=== PATIENT | male | born 1955 | race American Indian/Alaskan Native ===

== ENCOUNTER 2016-09-02 12:53 | Emergency (ER) | payer OTHER ==
--- NOTE | 2016-09-02 15:39 | Cat Scan Report ---
FINAL REPORT PROCEDURE: CT HEAD/BRAIN WO CON TECHNIQUE: Computerized tomography of the head was performed without contrast material. HISTORY: trauma,injury COMPARISON: No prior studies are available for comparison. FINDINGS: Skull and scalp: Normal. Paranasal sinuses: Normal. Ventricles and subarachnoid spaces: Normal. Cerebrum: No evidence of hemorrhage, acute infarction or mass . Cerebellum and brainstem: No evidence of hemorrhage, acute infarction or mass. Vasculature: Normal. Comments: None. IMPRESSION: No acute fracture or intracranial bleed seen
--- NOTE | 2016-09-02 15:46 | Cat Scan Report ---
FINAL REPORT PROCEDURE: CT CERVICAL SPINE WO CON TECHNIQUE: Computerized tomography of the cervical spine was performed from the skull base to T1 without contrast material. HISTORY: trauma,injury COMPARISON: No prior studies are available for comparison. FINDINGS: Severe degenerative changes of the cervical spine with multilevel disc degeneration and osteophytic changes. Prominent sclerotic vertebral bodies at the C5-C6 and C7 levels primarily with micro lytic or cystic changes likely degenerative present. Moderate sclerotic change at C3. Skull base appears intact. No fluid in the mastoid air cells. Multilevel facet arthropathy and neuroforaminal narrowing. Medial ribs clavicles appear intact. Emphysematous changes upper lung zones with bleb in the right upper apex. The overall sclerotic or hyperdense appearance of the cervical spine may reflect underlying renal osteodystrophy or systemic illness however could be normal variation for this patient. IMPRESSION: No acute fracture of the cervical spine. Severe degenerative changes in multilevel neuroforaminal narrowing for which followup MRI may be warranted. General increased bone density may reflect underlying systemic illness for which further workup or further clinical data correlation may be warranted
[2016-09-02] MEDS ORDERED: PERCOCET 5/325 PO ONE (16:11)
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
[2016-09-02] MEDS ORDERED: CATAPRES PO ONE (16:28)
[2016-09-02 18:11] VITALS: BP 185/85
== END 2016-09-02 18:19 | disposition home or self-care (01) ==
LOC: ED 12:53
DX: S09.90XA Unspecified injury of head, initial encounter (principal); I10 Essential (primary) hypertension; M54.2 Cervicalgia; F17.200 Nicotine dependence, unspecified, uncomplicated; W22.8XXA Striking against or struck by other objects, initial encounter; Y93.9 Activity, unspecified; Y99.9 Unspecified external cause status; Y92.69 Other specified industrial and construction area as the place of occurrence of the external cause
CPT/HCPCS: 70450; 72125; 99282